=== PATIENT | female | born 2000 | race Hispanic/Latino ===

== ENCOUNTER 2024-01-21 15:08 | Emergency (ER) | payer OTHER, BC ==
[~2024-01-21] VITALS: Ht 154.9 cm; Wt 47.6 kg
[2024-01-21 15:46] LABS: HCG,QUALITATIVE URINE NEGATIVE (NEGATIVE)
[2024-01-21 15:52] LABS: AMPHET/METH SCREEN,URINE NEGATIVE (NEGATIVE); BARBITURATE SCREEN, URINE NEGATIVE (NEGATIVE); BENZODIAZEPINES SCREEN,URINE NEGATIVE (NEGATIVE); CANNABINOID SCREEN,URINE NEGATIVE (NEGATIVE); COCAINE SCREEN,URINE NEGATIVE (NEGATIVE); OPIATE SCREEN,URINE NEGATIVE (NEGATIVE); PHENCYCLIDINE SCREEN,URINE NEGATIVE (NEGATIVE)
[2024-01-21] MEDS: BACLOFEN 10 MG TABLET PO ONE (16:23)
[2024-01-21] MEDS: acetaMINOPHEN 500 MG TABLET PO ONE (16:23)
[2024-01-21] MEDS ORDERED: CYCL5TAB PO (17:38)
[2024-01-21] MEDS ORDERED: IBUP-2077 PO (17:38)
[2024-01-21] MEDS: IBUPROFEN 800 MG TAB PO SCH (17:45)
[2024-01-21 18:21] VITALS: BP 122/77; PULSE 78; RESP 20; TEMP 97.9; O2SAT 97
== END 2024-01-21 18:22 | disposition home or self-care (01) ==
LOC: EDH 15:08
DX: S13.9XXA Sprain of joints and ligaments of unspecified parts of neck, initial encounter (principal); R51.9 Headache, unspecified; V89.2XXA Person injured in unspecified motor-vehicle accident, traffic, initial encounter; Y93.I9 Activity, other involving external motion; Y92.89 Other specified places as the place of occurrence of the external cause; Y99.8 Other external cause status
CPT/HCPCS: 70450; 72125; 80305; 81025

== ENCOUNTER 2024-08-23 06:39 | Observation (INO) | payer BC ==
[~2024-08-23] VITALS: Ht 154.9 cm; Wt 49.9 kg
[2024-08-23] VITALS (22 sets, daily range): BP systolic 104–128; BP diastolic 45–77; PULSE 70–109; RESP 14–20; TEMP 97.7–98.2; O2SAT 96–98
[~2024-08-23 06:39] MED LIST: CYCL5TAB3 PO; IBUP-2077 PO
--- NOTE | 2024-08-23 06:46 | NUR ---
MD AND MOTHER AT BEDSIDE.
--- NOTE | 2024-08-23 06:49 | ERN ---
General Chief Complaint: Abdominal Pain Stated Complaint: ABD PAIN, URINARY RETENTION Time Seen by MD: 06:49 Source: patient History of Present Illness Initial Comments Patient is an otherwise healthy 24-year-old female who woke up with right lower quadrant pain this morning. She does not have urinary retention it is just hurts in the right lower quadrant when she voids. She does not have burning when she urinates. Allergies: Coded Allergies: No Known Drug Allergies (Unverified Allergy, Unknown, 01/21/24) Home Meds Active Scripts Cyclobenzaprine HCl (Cyclobenzaprine HCl) 5 Mg Tablet, 5 MG PO TIDP for 10 Days, #30 TAB Prov:ANDRA OLMOS MD 01/21/24 Ibuprofen (Ibuprofen 800 mg Tab) 800 Mg Tab, 800 MG PO TIDP PRN for PAIN for 10 Days, #30 TAB Prov:ANDRA OLMOS MD 01/21/24 Past Medical History Past Medical History: No Pertinent History Past Surgical History: Other Surgical History Other: THROAT CYST REMOVAL Female( History) LMP: Aug 17, 2024 Constitutional: (-) chills, (-) diaphoresis, (-) fever, (-) malaise, (-) weakness, (-) other documentation EENTM: (-) eye pain, (-) blurred vision, (-) tearing, (-) double vision, (-) ear pain, (-) ear discharge, (-) nose pain, (-) nose congestion, (-) throat pain, (-) Throat swelling, (-) mouth pain, (-) tooth pain, (-) mouth swelling, (-) other documentation Respiratory: (-) cough, (-) orthopnea, (-) short of breath, (-) stridor, (-) wh eezing, (-) other documentation Cardiovascular: (-) chest pain, (-) edema, (-) palpitations, (-) syncope, (-) dyspnea on exertion, (-) other documentation Gastrointestinal/Abdominal: (-) nausea, (-) vomiting, (-) diarrhea, (-) abdominal pain, (-) abdominal distention, (-) constipation, (-) rectal bleeding, (-) dark stool/melena, (-) other documentation Genitourinary: (-) vaginal discharge, (-) vaginal bleeding, (-) dysuria, (-) frequency, (-) hematuria, (-) pain, (-) other documentation Musculoskeletal: (-) Neck pain, (-) back pain, (-) Flank Pain, (-) joint pain, (-) joint swelling, (-) muscle pain, (-) muscle stiffness, (-) gout, (-) other documentation Skin: (-) laceration, (-) contusion, (-) abrasion, (-) abscess, (-) rash, (-) change in color, (-) change in hair, (-) change in nails, (-) diaphoresis, (-) dryness, (-) other documentation Neuro: (-) altered mental status, (-) headache, (-) syncope, (-) paralysis, (-) numbness, (-) seizure, (-) pre-existing deficit, (-) tremors, (-) weakness, (-) dizziness, (-) slurred speech, (-) vertigo, (-) other documentation Psych: (-) depression, (-) suicidal ideation, (-) anxiety, (-) emotional problems, (-) auditory hallucinations, (-) visual hallucinations Physical Exam General Appearance: (+) moderate distress Orientation: (+) oriented x 3 Head/Face Trauma: No Eye: bilateral eye normal inspection, bilateral eye PERRL, bilateral eye EOMI Ear, Nose, Throat: (+) hearing grossly normal, (+) normal ENT inspection, (+) moist mucous membraine Neck: (+) normal inspection, (+) supple, (+) full range of motion, (+) no JVD Respiratory: (+) chest non-tender, (+) lungs clear, (+) well ventilated Heart: (+) regular, (+) no gallop Vascular: (+) no edema Gastrointestinal: (+) soft Gastrointestinal Comment Patient has severe right lower quadrant pain and peritoneal signs. When she steps her heel to the ground her right lower quadrant hurts. She has to move very very slowly to avoid the pain. Results Laboratory and Microbiology Lab and Micro Result Laboratory Tests Test 08/23/24 07:04 08/23/24 07:20 Urine Color YELLOW (YELLOW) Urine Appearance CLEAR (CLEAR) Urine pH 5.5 (5.0-8.0) Urine Specific [place] 1.030 (1.001-1.031) Urine Protein 10 mg/dL (NEGATIVE) H Urine Glucose (UA) NEGATIVE mg/dL (NEGATIVE) Urine Ketones NEGATIVE mg/dL (NEGATIVE) Urine Occult Blood SMALL (NEGATIVE) H Urine Nitrate NEGATIVE (NEGATIVE) Urine Bilirubin NEGATIVE mg/dL (NEGATIVE) Urine Urobilinogen 0.2 mg/dL (0.2-1.0) Urine Leukocyte Esterase 75 Sandra/uL (NEGATIVE) H Urine RBC 2-5 /HPF (0-1) H Urine WBC 2-5 /HPF (0-1) H Urine Squamous Epithelial Cells FEW /HPF (0-2) Urine Bacteria None /HPF (None Seen) Urine HCG, Qualitative NEGATIVE (NEGATIVE) White Blood Count 5.8 K/uL (4.8-10.8) Red Blood Count 4.85 MIL/uL (4.00-5.50) Hemoglobin 13.3 g/dL (12.0-16.0) Hematocrit 40.9 % (36-48) Mean Corpuscular Volume 84.3 fL (79-99) Mean Corpuscular Hemoglobin 27.4 pg (27.0-33.0) Mean Corpuscular Hemoglobin Concent 32.5 g/dL (32.0-36.0) Red Cell Distribution Width 12.6 % (11.0-15.5) Platelet Count 334 K/uL (130-400) Mean Platelet Volume 9.7 fL (7.5-10.5) Immature Granulocyte % (Auto) 0.3 % (0-1) Neutrophils (%) (Auto) 43.0 % (40.0-77.0) Lymphocytes (%) (Auto) 46.0 % (21.0-51.0) Monocytes (%) (Auto) 7.7 % (3.0-13.0) Eosinophils (%) (Auto) 2.7 % (0.0-8.0) Basophils (%) (Auto) 0.3 % (0.0-5.0) Neutrophils # (Auto) 2.5 K/uL (1.8-7.7) Lymphocytes # (Auto) 2.7 K/uL (1.0-4.8) Monocytes # (Auto) 0.5 K/uL (0.1-1.0) Eosinophils # (Auto) 0.16 K/uL (0.00-0.70) Basophils # (Auto) 0.02 K/uL (0.00-0.20) Absolute Immature Granulocyte (auto 0.02 K/uL (0-1) Nucleated Red Blood Cells 0.0 % (0.0-0.19) Sodium Level 138 mmol/L (136-145) Potassium Level 3.6 mmol/L (3.5-5.1) Chloride Level 104 mmol/L (101-111) Carbon Dioxide Level 27 mmol/L (21-32) Blood Urea Nitrogen 11 mg/dL (7-18) Creatinine 0.8 mg/dL (0.5-1.0) Glomerular Filtration Rate Calc 107 mL/min (>90) Random Glucose 92 mg/dL (70-105) Total Calcium 9.0 mg/dL (8.5-10.1) Total Bilirubin 0.3 mg/dL (0.2-1.0) Aspartate Amino Transf (AST/SGOT) 14 U/L (10-37) Alanine Aminotransferase (ALT/SGPT) 10 U/L (12-78) L Alkaline Phosphatase 56 U/L (50-136) Total Protein 7.5 g/dL (6.0-8.3) Albumin 3.8 g/dL (3.5-5.0) Amylase Level 45 U/L (25-115) Lipase 32 U/L (16-77) Labs Reviewed?: Yes EKG/XRAY/US/CT/MRI CT Scan Comment [place] [id number] [address] IMAGING REPORT Signed PATIENT: EFRAIN CROFT MR#: [id number] : 2000 SEX: F AGE: 24 LOCATION: [facility] ORDER 5 STATUS: REG ER REPORT#: [id number] SERVICE 3 REASON: RLQ pain ORDERING PHYSICIAN: SHANTE NORMAN MD PROCEDURE: ABD PEL W - CT ABDOMEN/PELVIS W/CONTRAST Exam Type: CT ABDOMEN/PELVIS W/CONTRAST Clinical Information: RLQ pain Comparison: None Contrast: 100 cc's Isovue 370 IV, no complications or adverse reactions CT Dose Index (CTDI): 31.60 mGy Dose Length Product (DLP): 1740.80 total mGy-cm Findings: No evidence of nephro or ureterolithiasis is found. No hydronephrosis or ureteral dilatation is seen. The lung bases are clear. The stomach is unremarkable. It shows no wall thickening. No gross ulceration is seen. It is not overly distended. There are no surrounding inflammatory changes. No wall lesions are identified to suggest cancer. The spleen is unremarkable. It is not enlarged. The pancreas shows normal anatomy. It is not fatty replaced. It shows no lesions. The pancreatic duct is not dilated. The gallbladder is unremarkable. It shows no cholelithiasis. The gallbladder wall is normal in thickness. There is no pericholecystic fluid. The is no acute or chronic inflammation noted. The adrenal glands are unremarkable. There is no enlargement. No lesions are noted. The liver is unremarkable. It shows no focal masses. There is no evidence of appendiceal inflammation or dilatation. Appendix diameter is less than 5 mm. However, there is an intraluminal appendiceal appendicolith. This is of uncertain clinical significance. The small bowel is unremarkable. There is no evidence of dilatation to suggest obstruction. No evidence of adynamic ileus is seen. There is no small bowel wall thickening to suggest enteritis. The colon is unremarkable. The urinary bladder is unremarkable. There is no wall thickening to suggest tumor or inflammation. There are no intraluminal calculi. There are no diverticula. There is no evidence of chronic bladder outlet obstruction. There is no evidence of urinary bladder distention to suggest urinary retention. The other pelvic structures are unremarkable. The bony and vascular structures are unremarkable for the patient's age. IMPRESSION: There is no evidence of appendiceal inflammation or dilatation. Appendix diameter is less than 5 mm. However, there is an intraluminal appendiceal appendicolith. This is of uncertain clinical significance. This study was performed using dose reduction techniques to include automated exposure control and/or adjustment of the mA and/or kV according to patient size. DICTATED BY: OZZIE ARCOS MD DATE: 08/23/24829 ELECTRONICALLY SIGNED BY: OZZIE ARCOS MD DATE: 08/23/24833 MDM The patient's exam and right lower quadrant pain are consistent with a appendicitis; however, we can not rule out ovarian disease or STD or urinary tract infection or other intra-abdominal pathologies. We will obtain a CBC chemistry panel give her fluid pain medications and get a CT scan with IV contrast. Also UA and urine . MDM: Differential diagnosis: Appendicitis, right lower quadrant pain, abdominal pain, intractable abdominal pain, Rationale: Tests considered and ordered secondary to shared decision making include: labs, ECG and radiology Previous outside records reviewed: Old ER visits. Risk of complication and/or morbidity or mortality of patient management: None Medications-Per medication reconciliation Need for hospitalization: Patient does meet criteria for hospitalization. Need for emergency major/minor surgery: No There are no social concerns with this patient. Prescription drug management Prescriptions will include symptomatic care Patient's prior external medical records from other ER visits were reviewed by me as indicated. Prior testing and results from previous visits were reviewed. Prior tests were taken into account with medical decision making and resource u tilization, independent historian/historians were used to obtain complete medical history. I independently interpreted the test that were performed, results were reviewed by me and considered findings on radiology if ordered. Medical management and examination interpretation discussions were had by me with other qualified healthcare professionals as indicated for the patient's ca re. Patient presents with right lower quadrant tenderness on palpation on physical exam. Patient will be admitted under the hospitalist group due to the physical presentation of a possible appendicitis he has been dull CT did not confirm inflammation of the poole it was appendicoliths which is still concerning for evolving appendicitis. Surgeon will be consulted for ongoing evaluation and management. ED Course Orders Procedure Category Date Status Time Urinalysis Profile LAB 08/23/24 Complete 06:55 Cbc With Differential LAB 08/23/24 Complete 06:56 Comprehensive LAB 08/23/24 Complete Metabolic Panel 06:56 Amylase LAB 08/23/24 Complete 06:56 Lipase LAB 08/23/24 Complete 06:56 ,Urine Test LAB 08/23/24 Complete 07:02 Ct Abdomen/Pelvis CT 08/23/24 Resulted W/Contrast 07:04 Ketorolac PHA 08/23/24 Complete Tromethamine 30mg/Ml 07:30 Culture Urine TESSA 08/23/24 In Process 07:17 Iohexol (Omnipaque) PHA 08/23/24 Complete 07:49 Current Medications Medications (Trade) Dose Ordered Sig/Samira Route PRN Reason Start Time Stop Time Status Last Admin Dose Admin Iohexol (Omnipaque) 75 ml STK-MED ONCE IV 08/23/24 07:49 08/23/24 07:50 DC Ketorolac Tromethamine (toRADol) 30 mg ONCE ONCE IVP 08/23/24 07:30 08/23/24 07:31 DC 08/23/24 07:25 Vital Signs Date Time Temp Pulse Resp B/P (MAP) Pulse Ox O2 Delivery O2 Flow Rate FiO2 08/23/24 08:16 65 17 111/78 96 Room Air* 0 21 08/23/24 06:40 98.8 77 16 133/93 100 Room Air DX & DISP Disposition: Inpatient Decision to Admit Time: 09:17 Departure Impression: Primary Impression: Appendicitis Additional Impressions: Appendicolith, Right lower quadrant pain Condition: Stable Referrals: ALISON POWERS (PCP) SHANTE NORMAN MD Aug 23, 2024 06:49 KASSANDRA HOWELL MD Aug 23, 2024 09:18
--- NOTE | 2024-08-23 07:03 | NUR ---
PATIENT IN RESTROOM COLLECTING A URINE SAMPLE.
[2024-08-23 07:14] LABS: APPEARANCE,URINE CLEAR (CLEAR); BILIRUBIN,URINE NEGATIVE (NEGATIVE); COLOR,URINE YELLOW (YELLOW); GLUCOSE, URINE (UA) NEGATIVE (NEGATIVE); KETONES,URINE NEGATIVE (NEGATIVE); LEUKOCYTE ESTERASE ,URINE 75 Leu/uL (NEGATIVE); NITRATE,URINE NEGATIVE (NEGATIVE); OCCULT BLOOD,URINE SMALL (NEGATIVE); PH,URINE 5.5 (5.0-8.0); PROTEIN,URINE 10 mg/dL (NEGATIVE); UROBILINOGEN,URINE 0.2 mg/dL (0.2-1.0)
[2024-08-23 07:17] LABS: ADD UA MICROSCOPIC YES
[2024-08-23 07:19] LABS: MUCUS,URINE MOD LPF (None Seen); SQUAMOUS EPITHELIAL CELL,UR FEW /HPF (0-2)
--- NOTE | 2024-08-23 07:21 | NUR ---
PENDING GFR & TEST RESULTS, IV SITE, & CONSENT FOR CT EXAM.
[2024-08-23] MEDS: ketOROlac 30MG VIAL (30MG/ML) IVP ONE (07:25)
[2024-08-23 07:29] LABS: BASOPHILS # (AUTO) 0.02 K/uL (0.00-0.20); BASOPHILS % (AUTO) 0.3 % (0.0-5.0); EOSINOPHILS # (AUTO) 0.16 K/uL (0.00-0.70); EOSINOPHILS % (AUTO) 2.7 % (0.0-8.0); HEMATOCRIT 40.9 % (36-48); IMMATURE GRANULOCYTE ABSOLUTE 0.02 K/uL (0-1); LYMPHOCYTES # (AUTO) 2.7 K/uL (1.0-4.8); MEAN CORPUSCULAR HEMOGLOBIN 27.4 pg (27.0-33.0); MEAN CORPUSCULAR HGB CONC 32.5 g/dL (32.0-36.0); MEAN CORPUSCULAR VOLUME 84.3 fL (79-99); MONOCYTES # (AUTO) 0.5 K/uL (0.1-1.0); MONOCYTES % (AUTO) 7.7 % (3.0-13.0); NEUTROPHILS # (AUTO) 2.5 K/uL (1.8-7.7); PLATELET COUNT (AUTO) 334 K/uL (130-400); RED BLOOD CELL COUNT(AUTO) 4.85 MIL/uL (4.00-5.50); RED CELL DISTRIBUTION WIDTH 12.6 % (11.0-15.5); WHITE BLOOD COUNT (AUTO) 5.8 K/uL (4.8-10.8)
[2024-08-23 07:37] LABS: CREATININE 0.8 mg/dL (0.5-1.0); POTASSIUM 3.6 mmol/L (3.5-5.1)
[2024-08-23 07:41] LABS: ALBUMIN 3.8 g/dL (3.5-5.0); BILIRUBIN,TOTAL 0.3 mg/dL (0.2-1.0); TOTAL PROTEIN, SERUM 7.5 g/dL (6.0-8.3)
[2024-08-23] MEDS ORDERED: IOHEXOL-350 75 ML VIAL IV ONE (07:49)
--- NOTE | 2024-08-23 08:34 | HMCIMG ---
Exam Type: CT ABDOMEN/PELVIS W/CONTRAST Clinical Information: RLQ pain Comparison: None Contrast: 100 cc's Isovue 370 IV, no complications or adverse reactions CT Dose Index (CTDI): 31.60 mGy Dose Length Product (DLP): 1740.80 total mGy-cm Findings: No evidence of nephro or ureterolithiasis is found. No hydronephrosis or ureteral dilatation is seen. The lung bases are clear. The stomach is unremarkable. It shows no wall thickening. No gross ulceration is seen. It is not overly distended. There are no surrounding inflammatory changes. No wall lesions are identified to suggest cancer. The spleen is unremarkable. It is not enlarged. The pancreas shows normal anatomy. It is not fatty replaced. It shows no lesions. The pancreatic duct is not dilated. The gallbladder is unremarkable. It shows no cholelithiasis. The gallbladder wall is normal in thickness. There is no pericholecystic fluid. The is no acute or chronic inflammation noted. The adrenal glands are unremarkable. There is no enlargement. No lesions are noted. The liver is unremarkable. It shows no focal masses. There is no evidence of appendiceal inflammation or dilatation. Appendix diameter is less than 5 mm. However, there is an intraluminal appendiceal appendicolith. This is of uncertain clinical significance. The small bowel is unremarkable. There is no evidence of dilatation to suggest obstruction. No evidence of adynamic ileus is seen. There is no small bowel wall thickening to suggest enteritis. The colon is unremarkable. The urinary bladder is unremarkable. There is no wall thickening to suggest tumor or inflammation. There are no intraluminal calculi. There are no diverticula. There is no evidence of chronic bladder outlet obstruction. There is no evidence of urinary bladder distention to suggest urinary retention. The other pelvic structures are unremarkable. The bony and vascular structures are unremarkable for the patient's age. IMPRESSION: There is no evidence of appendiceal inflammation or dilatation. Appendix diameter is less than 5 mm. However, there is an intraluminal appendiceal appendicolith. This is of uncertain clinical significance. This study was performed using dose reduction techniques to include automated exposure control and/or adjustment of the mA and/or kV according to patient size.
--- NOTE | 2024-08-23 09:42 | HP ---
[facility] Date of Service: Aug 23, 2024 Time of Service: 09:39 HISTORY OF PRESENT ILLNESS: [ ] Admission date 08/23/2024 PCP Sonido Holley Chief complaint right lower quadrant pain This is a 24-year-old female presents in ED with chief complaints of right lower quadrant pain. Onset this morning. Severity severe aggravated factors movement alleviating factors none state 10/10 on pain scale. Denies nausea and vomiting and diarrhea no fever no chills reported. During physical examined patient has positive Rovsing sign CT abdomen pelvis suspecting appendicitis. Imaging: intraluminal appendiceal appendicolith. We will consult general surgeon. Patient was seen in for 403 right upper quad dull pain. No nausea no vomiting. REVIEW OF SYSTEMS A14 point ROS was obtained all relevant positive documented otherwise ROS negative PAST MEDICAL HISTORY: [ ] Negative PAST SURGICAL HISTORY: [ ] nodule removal from thyroid PAST SOCIAL HISTORY: [ ] Denies smoking tobacco products and alcohol use and Illicit drug use FAMILY HISTORY: [ ] Noncontributory Coded Allergies: No Known Drug Allergies (Unverified Allergy, Unknown, 01/21/24) PHYSICAL EXAM GENERAL APPEARANCE: The patient is awake, alert, and oriented, in no acute cardiopulmonary distress. NEUROLOGICAL: Cranial nerves II-XII grossly intact. Motor is 5/5 in bilateral upper and lower extremities proximal to distal. No sensory deficits. HEENT: Face is symmetric. Pupils are equal and reactive. Extraocular movements are intact. NECK: Supple. No JVD. No thyromegaly. No submental, submandibular, pre- /postauricular, occipital or supraclavicular lymphadenopathy. CHEST: Normal chest expansion. No Telemetry. LUNGS: Absence of any rales, rhonchi or any wheezing. CARDIOVASCULAR: Regular. S1 and S2 normal. No appreciable rubs, murmurs or gallops. ABDOMEN: Soft, nontender, and nondistended. positive Rovsing sign positive heel tap sign : Deferred. No Galo. EXTREMITIES: Non-edematous and not cyanotic. No clubbing. Good capillary refill. SKIN: No skin breakdown. Vital Sign (Last 24 Hours) 08/23/24 08/23/24 06:40 08:16 Temp 98.8 Pulse 65 Resp 17 B/P (MAP) 111/78 Pulse Ox 96 O2 Delivery Room Air* O2 Flow Rate 0 FiO2 21 LABS: Laboratory: Test 08/23/24 07:20 08/23/24 07:04 Range/Units White Blood Count 5.8 4.8-10.8 K/uL Red Blood Count 4.85 4.00-5.50 MIL/uL Hemoglobin 13.3 12.0-16.0 g/dL Hematocrit 40.9 36-48 % Mean Corpuscular Volume 84.3 79-99 fL Mean Corpuscular Hemoglobin 27.4 27.0-33.0 pg Mean Corpuscular Hemoglobin Concent 32.5 32.0-36.0 g/dL Red Cell Distribution Width 12.6 11.0-15.5 % Platelet Count 334 130-400 K/uL Mean Platelet Volume 9.7 7.5-10.5 fL Immature Granulocyte % (Auto) 0.3 0-1 % Neutrophils (%) (Auto) 43.0 40.0-77.0 % Lymphocytes (%) (Auto) 46.0 21.0-51.0 % Monocytes (%) (Auto) 7.7 3.0-13.0 % Eosinophils (%) (Auto) 2.7 0.0-8.0 % Basophils (%) (Auto) 0.3 0.0-5.0 % Neutrophils # (Auto) 2.5 1.8-7.7 K/uL Lymphocytes # (Auto) 2.7 1.0-4.8 K/uL Monocytes # (Auto) 0.5 0.1-1.0 K/uL Eosinophils # (Auto) 0.16 0.00-0.70 K/uL Basophils # (Auto) 0.02 0.00-0.20 K/uL Absolute Immature Granulocyte (auto 0.02 0-1 K/uL Nucleated Red Blood Cells 0.0 0.0-0.19 % Sodium Level 138 136-145 mmol/L Potassium Level 3.6 3.5-5.1 mmol/L Chloride Level 104 101-111 mmol/L Carbon Dioxide Level 27 21-32 mmol/L Blood Urea Nitrogen 11 7-18 mg/dL Creatinine 0.8 0.5-1.0 mg/dL Glomerular Filtration Rate Calc 107 >90 mL/min Random Glucose 92 70-105 mg/dL Total Calcium 9.0 8.5-10.1 mg/dL Total Bilirubin 0.3 0.2-1.0 mg/dL Aspartate Amino Transf (AST/SGOT) 14 10-37 U/L Alanine Aminotransferase (ALT/SGPT) 10 L 12-78 U/L Alkaline Phosphatase 56 50-136 U/L Total Protein 7.5 6.0-8.3 g/dL Albumin 3.8 3.5-5.0 g/dL Amylase Level 45 25-115 U/L Lipase 32 16-77 U/L Urine Color YELLOW YELLOW Urine Appearance CLEAR CLEAR Urine pH 5.5 5.0-8.0 Urine Specific Max 1.030 1.001-1.031 Urine Protein 10 H NEGATIVE mg/dL Urine Glucose (UA) NEGATIVE NEGATIVE mg/dL Urine Ketones NEGATIVE NEGATIVE mg/dL Urine Occult Blood SMALL H NEGATIVE Urine Nitrate NEGATIVE NEGATIVE Urine Bilirubin NEGATIVE NEGATIVE mg/dL Urine Urobilinogen 0.2 0.2-1.0 mg/dL Urine Leukocyte Esterase 75 H NEGATIVE Sandra/uL Urine RBC 2-5 H 0-1 /HPF Urine WBC 2-5 H 0-1 /HPF Urine Squamous Epithelial Cells FEW 0-2 /HPF Urine Bacteria None None Seen /HPF Urine HCG, Qualitative NEGATIVE NEGATIVE DIAGNOSTICS / RADIOLOGY: [ ] REASON: RLQ pain ORDERING PHYSICIAN: SHANTE NORMAN MD PROCEDURE: ABD PEL W - CT ABDOMEN/PELVIS W/CONTRAST Exam Type: CT ABDOMEN/PELVIS W/CONTRAST Clinical Information: RLQ pain Comparison: None Contrast: 100 cc's Isovue 370 IV, no complications or adverse reactions CT Dose Index (CTDI): 31.60 mGy Dose Length Product (DLP): 1740.80 total mGy-cm Findings: No evidence of nephro or ureterolithiasis is found. No hydronephrosis or ureteral dilatation is seen. The lung bases are clear. The stomach is unremarkable. It shows no wall thickening. No gross ulceration is seen. It is not overly distended. There are no surrounding inflammatory changes. No wall lesions are identified to suggest cancer. The spleen is unremarkable. It is not enlarged. The pancreas shows normal anatomy. It is not fatty replaced. It shows no lesions. The pancreatic duct is not dilated. The gallbladder is unremarkable. It shows no cholelithiasis. The gallbladder wall is normal in thickness. There is no pericholecystic fluid. The is no acute or chronic inflammation noted. The adrenal glands are unremarkable. There is no enlargement. No lesions are noted. The liver is unremarkable. It shows no focal masses. There is no evidence of appendiceal inflammation or dilatation. Appendix diameter is less than 5 mm. However, there is an intraluminal appendiceal appendicolith. This is of uncertain clinical significance. The small bowel is unremarkable. There is no evidence of dilatation to suggest obstruction. No evidence of adynamic ileus is seen. There is no small bowel wall thickening to suggest enteritis. The colon is unremarkable. The urinary bladder is unremarkable. There is no wall thickening to suggest tumor or inflammation. There are no intraluminal calculi. There are no diverticula. There is no evidence of chronic bladder outlet obstruction. There is no evidence of urinary bladder distention to suggest urinary retention. The other pelvic structures are unremarkable. The bony and vascular structures are unremarkable for the patient's age. IMPRESSION: There is no evidence of appendiceal inflammation or dilatation. Appendix diameter is less than 5 mm. However, there is an intraluminal appendiceal appendicolith. This is of uncertain clinical significance. This study was performed using dose reduction techniques to include automated exposure control and/or adjustment of the mA and/or kV according to patient size. DICTATED BY: OZZIE ARCOS MD ASSESSMENT: Suspecting appendicitis positive Rovsing sign positive heel tap sign POA Intractable right lower quad pain POA UTI POA PLAN: [ ] Admit: Medical-surgical floor condition: Guarded Status: Full code IVF: NS at 75 mL/hour Consultants general surgeon Antibiotics: Rocephin1 g every 24 hours Labs cbc, cmp, mag+ Replace electrolytes as needed as per protocol to keep potassium above 4.0 magnesium 2.0. Home medications pending to be reviewed by RN nurse. PRN: MEDICATIONS Tylenol 650 mg po every 4 hrs for fever zofran 4 mg IV every 6 hrs for n/v bowel regiment: lactulose 20 gm PO BID PRN constipation Pain management: Toradol 50 mg IV every six hours Supportive measures: DVT ppx, GI ppx all questions answered time spent: > 35 min Supervising MD: Dr. greenwood c/tammie This document was generated in part using voice recognition software, occasional wrong word or sound alike substitutions may have occurred due to the inherent limitations of voice recognition software. Read the chart carefully and recognize using context, where the substitutions have occurred. Although every effort was made to edit the content, property worker and typing errors may occur ATTESTATION BY PHYSICIAN I have seen and examined the patient. I reviewed the documentation, medical decision making, and treatment plan as noted by the mid-level provider above. I agree with the findings and plan of care. HI GREENWOOD MD, ELIZABETH NP Aug 23, 2024 09:42
[2024-08-23] MEDS ORDERED: ondanSETRON 4MG INJ IVP PRN (10:30)
[2024-08-23] MEDS ORDERED: LACTULOSE 20 GM/30 ML UDCUP PO PRN (10:30)
[2024-08-23] MEDS ORDERED: PoTASSium chloRIDE 20MEQ/100ML 100 ML IV PRN (10:30)
[2024-08-23] MEDS ORDERED: acetaMINOPHEN 325 MG TAB PO PRN (10:30)
[2024-08-23] MEDS: ketOROlac 15MG/ML VIAL (15MG/ML) IV PRN (12:19)
[2024-08-23] MEDS: cefTRIAXone 1G VIAL IVPB SCH (12:20)
[2024-08-23] MEDS: 0.9%NACL 1000ML 1,000 ML IV SCH (12:20)
--- NOTE | 2024-08-23 13:22 | CONS ---
CONSULT NOTE: Consulting physician: Dr. Lo Consulting service: General surgery Reason for consultation: Appendicitis History of present illness: This is a 24-year-old female with no significant medical history has been consulted to surgery after presenting to the hospital with significant lower quadrant discomfort that began earlier in the morning. Patient reports no significant medical history or surgical history or previous events similar. WBCs unremarkable. Imaging concerning with the appendicolith within the appendix at this time. Patient currently NPO Medical history: None Surgical history: None Review of systems: General: No Fever, No Chills, No Night Sweats, No Fatigue, No Malaise, No Appetite, No Other HEENT: No Head Aches, No Visual Changes, No Eye Pain, No Ear Pain, No Dysphasia, No Sinus Congestion, No Post Nasal Drip, No Sore Throat, No Other Pulmonary: No Dyspnea, No Cough, No Pleuritic Chest Pain, No Other Cardiovascular: No: Chest Pain, Palpitations, Orthopnea, Paroxysmal No Dyspnea, Edema, Lt Headedness, Other Gastrointestinal: No: Nausea, Vomiting, Diarrhea, Constipation, Melena, Hematochezia, Other Genitourinary: No Dysuria, No Frequency, No Incontinence, No Hematuria, No Retention, No Other Musculoskeletal: No: other, neck pain, shoulder pain, arm pain, back pain, hand pain, leg pain, foot pain Skin: No Urticaria, No Rash, No Other Neurological: No: Weakness, Numbness, Incoordination, Change in speech, Confusion, Seizures, Other Physical exam: General: Awake alert and oriented Heart: Regular rate and rhythm} Lungs: [Clear to auscultation no distress Abdomen: Right lower quadrant tenderness greater two five no rebound Assessment: This is a 24-year-old female with concerns of appendicolith in the appendix Plan: At this point in time patient will be scheduled for appendectomy today with Dr. Solis Patient to remain NPO Patient informed of surgical procedure risks and benefits and agrees with surgical intervention Consent for surgical intervention to be obtained Doctor Solis has been updated in patient's status and surgical team to follow patient closely BRAYDEN AMBRIZ Jr. Aug 23, 2024 13:22
[2024-08-23] MEDS ORDERED: proPOFol 10 MG/ML 20ML VIAL IV ONE (16:23)
[2024-08-23] MEDS ORDERED: SUCCINYLCHOLINE CHLORIDE 20 MG/ML 10 ML VIAL ONE (16:23)
[2024-08-23] MEDS ORDERED: MIDAZOLAM HCL 1 MG/ML 2ML VIAL ONE (16:23)
[2024-08-23] MEDS ORDERED: LIDOCAINE PF 100MG/5ML (2%) SYRINGE 5ML ONE (16:23)
[2024-08-23] MEDS ORDERED: ondanSETRON 4MG INJ ONE (16:24)
[2024-08-23] MEDS ORDERED: dexaMETHasone SOD PHOSPHATE 10MG/ML 1ML VIAL ONE (16:24)
[2024-08-23] MEDS ORDERED: FENTanyl CITRate PF 50 MCG/1 ML 2ML VIAL ONE (16:26)
[2024-08-23] MEDS ORDERED: rocuRONium bROMide 10MG/1ML 5ML VL ONE (16:54)
[2024-08-23] MEDS: LIDOCAINE HCL 1% 20 ML VIAL ONE (17:19)
[2024-08-23] MEDS: BUPIvacaine/PF 0.25% 30ML VIAL IJ ONE (17:19)
--- NOTE | 2024-08-23 17:51 | OP ---
Operative Note: DATE OF PROCEDURE: 08/23/24 SURGEON: ROLY HEAD DO TUBE FORMER OPERATOR: None ANESTHESIA: General and local ANESTHESIOLOGIST/FAMILY PRESERVATION OFFICER: COURTNEY Tello PREOPERATIVE DIAGNOSIS: Acute appendicitis POSTOPERATIVE DIAGNOSIS: Acute uncomplicated appendicitis SYNOPSIS: None PROCEDURE: Laparoscopic appendectomy ESTIMATED BLOOD LOSS: 5 cc INDICATIONS: This is a 24-year-old female that came to the emergency department for abrupt onset lower abdominal pain that started this morning. She is afebrile without leukocytosis. CT scan showed a normal appendix with a fecalith. On physical exam patient was tender to palpation in the right lower quadrant. Patient reports that she had had several similar episodes in the past that resolved spontaneously. I discussed with the patient that the most likely diagnosis is acute appendicitis, but I can not be certain that there is an alternative cause to this abdominal pain. I recommended laparoscopic appendectomy. I discussed the procedure in detail with the patient and her family was all at bedside. All questions were answered. The patient expressed understanding and agreement with plan. DESCRIPTION OF PROCEDURE: Patient was placed on the operating table in the supine position with the left arm tucked. After being sedated and intubated by anesthesia the abdomen was prepped and draped in the usual sterile fashion. Patient is on antibiotics from the floor next dose not due for 3 hours. Local anesthetic was infiltrated into the proposed site of the supraumbilical incision. A transverse supraumbilical skin incision was made and dissection was carried down to the level of fascia. The fascia was grasped with 2 Christina clamps and elevated. The fascia was incised and the peritoneum was entered bluntly. A 12 mm balloon port was inserted into the peritoneal cavity and the abdomen was insufflated. The patient tolerated insufflation well. A laparoscopic camera was inserted into the abdomen and all 4 quadrants were inspected. no evidence of inadvertent injury apparent. There was a moderate amount of serosanguineous fluid in the pelvis. Two 5 mm ports were then placed in the suprapubic region and left lower quadrant under direct visualization. The patient was placed in Trendelenburg position with right side up. The appendix was identified and found to be enlarged without significant induration. The mesoappendix was divided using the Vuoyant vessel sealing device. The base of the appendix was transected using a white load laparoscopic stapling device. The staple line was inspected and found to be hemostatic. The appendix was placed into a laparoscopic bag. The ovaries were evaluated and found to be mildly enlarged. Serosanguineous fluid was suctioned from the pelvis. The 5 mm ports were removed under direct visualization and no ongoing bleeding evident. The appendix was removed with the 12 mm port and handed off for routine pathology. The fascia of the 12 mm port site was approximated using 0 Vicryl in a single [id number] suture. The skin was approximated using skin elif. Wounds were dressed with gauze and tape. All instrument, needle, and sponge counts were correct at the end of the procedure. The patient tolerated the procedure well. The patient was aroused from sedation extubated and taken to the postanesthesia care unit in good condition. ROLY HEAD DO Aug 23, 2024 17:51
[2024-08-23] MEDS: ondanSETRON 4MG INJ ONE (18:05)
[2024-08-23] MEDS: metoCLOPRAmide 10 MG/2 ML VIAL ONE (18:24)
--- NOTE | 2024-08-23 20:00 | NUR ---
NURSE NOTE POC DISCUSSED WITH PATIENT, ENCOURAGED TO AMBULATE TOLERATED, PATIENT ABLE TO AMBULATE TO RESTROOM WITH NO ISSUES, BURPING NOTED, VOIDED WELL, DENIES DIZZINESS. SCDS IN PLACE, TOLERATING CLEAR LIQUID , DRINKING WATER, REFUSED JELLO OR APPLE JUICE. CALL CASE AT REACH, EDUCATED ON FALL PRECAUTIONS. PATIENT VOICED UNDERSTANDING.
[2024-08-24 00:50] VITALS: BP 106/52; PULSE 80; RESP 19; TEMP 98
[2024-08-24 04:00] VITALS: BP 108/59; PULSE 74; RESP 18; TEMP 97.8
[2024-08-24 04:35] LABS: BASOPHILS # (AUTO) 0.01 K/uL (0.00-0.20); BASOPHILS % (AUTO) 0.1 % (0.0-5.0); HEMATOCRIT 37.4 % (36-48); IMMATURE GRANULOCYTE ABSOLUTE 0.03 K/uL (0-1); LYMPHOCYTES # (AUTO) 0.6 K/uL (1.0-4.8); LYMPHOCYTES % (AUTO) 7.5 % (21.0-51.0); MEAN CORPUSCULAR HEMOGLOBIN 26.9 pg (27.0-33.0); MEAN CORPUSCULAR HGB CONC 32.1 g/dL (32.0-36.0); MEAN CORPUSCULAR VOLUME 83.9 fL (79-99); MONOCYTES # (AUTO) 0.1 K/uL (0.1-1.0); MONOCYTES % (AUTO) 0.8 % (3.0-13.0); NEUTROPHILS # (AUTO) 7.8 K/uL (1.8-7.7); NEUTROPHILS % (AUTO) 91.2 % (40.0-77.0); PLATELET COUNT (AUTO) 320 K/uL (130-400); RED BLOOD CELL COUNT(AUTO) 4.46 MIL/uL (4.00-5.50); RED CELL DISTRIBUTION WIDTH 12.2 % (11.0-15.5); WHITE BLOOD COUNT (AUTO) 8.5 K/uL (4.8-10.8)
[2024-08-24 04:44] LABS: ALBUMIN 3.3 g/dL (3.5-5.0); BILIRUBIN,TOTAL 0.5 mg/dL (0.2-1.0); CREATININE 0.7 mg/dL (0.5-1.0); MAGNESIUM 1.6 mg/dL (1.80-2.40); POTASSIUM 4.2 mmol/L (3.5-5.1); TOTAL PROTEIN, SERUM 6.9 g/dL (6.0-8.3)
[2024-08-24] MEDS: MAGNESIUM 2GM PREMIX 50ML 50 ML IV PRN (05:25)
[2024-08-24 07:20] VITALS: BP 98/51; PULSE 85; RESP 20; TEMP 98.2
[2024-08-24 08:00] VITALS: O2SAT 98
--- NOTE | 2024-08-24 08:28 | NUR ---
PATIENT COMPLAINS OF TIGHTNESS ON LEFT UPPER ARM AND TINGLING TO THE LOWER EXTREMITIES. BP TAKEN AND IS WITHIN NORMAL RANGE. PATIENT'S MAGNESIUM WAS AT 1.6 THIS MORNING AND HAS BEEN COVERED. WILL LET THE ROUNDING KNOW.
--- NOTE | 2024-08-24 09:46 | NUR ---
PATIENT GIVEN TORADOL FOR PAIN THIS MORNING. WENT TO REASSESS PATIENT AND PATIENT STILL COMPLAINING OF PAIN. CONTACTED DR. GARCIA AND HAVE NOT RECEIVED A REPSONSE. WILL WAIT FOR RECOMMENDATION. ENCOURAGED PATIENT TO AMBULATE. PATIENT VERBALIZED UNDERSTANDING
--- NOTE | 2024-08-24 11:32 | NUR ---
DCP -- Home Patient states lives with Rocio Francis, Mother [phone] and father in a house with a ramp entrance and walk in shower. 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 States able to complete ADL's on her own. Denies medical devices. Denies home health services, home care provider or dialysis. PCP - Kishan Head MD Pharmacy - [address] Upon discharge, state Rocio Francis, Mother [phone] and assist with care, as needed. At this time, patient does not foresee additional medical needs. MD VALLADARES -- Status post Laparoscopic appendectomy with Dr. Corral Addendum: 08/24/24 at 1141 by CHEO HAMMER RN CM Amended: Links added.
[2024-08-24 11:42] VITALS: BP 112/75; PULSE 87; RESP 20; TEMP 98.4
--- NOTE | 2024-08-24 14:56 | DS ---
Discharge Summary Hospital Course Summary: 24-year-old female with no significant past medical history presented to ED with complaints of sudden onset of right lower quadrant pain , 10/10 intensity, aggravated with movement and no relieving factors. CT abdomen showed intraluminal appendiceal appendicolith. Laboratory studies were unremarkable. General surgery was consulted for acute appendicitis and laparoscopic appendectomy was done on 08/23/2024. Patient tolerated the procedure well and the postoperative hospital course was uneventful. Steel Construction Worker(s): ROLY HEAD DO- General Surgery Procedure(s): PROCEDURE: ABD PEL W - CT ABDOMEN/PELVIS W/CONTRAST Exam Type: CT ABDOMEN/PELVIS W/CONTRAST Clinical Information: RLQ pain Comparison: None Contrast: 100 cc's Isovue 370 IV, no complications or adverse reactions CT Dose Index (CTDI): 31.60 mGy Dose Length Product (DLP): 1740.80 total mGy-cm Findings: No evidence of nephro or ureterolithiasis is found. No hydronephrosis or ureteral dilatation is seen. The lung bases are clear. The stomach is unremarkable. It shows no wall thickening. No gross ulceration is seen. It is not overly distended. There are no surrounding inflammatory changes. No wall lesions are identified to suggest cancer. The spleen is unremarkable. It is not enlarged. The pancreas shows normal anatomy. It is not fatty replaced. It shows no lesions. The pancreatic duct is not dilated. The gallbladder is unremarkable. It shows no cholelithiasis. The gallbladder wall is normal in thickness. There is no pericholecystic fluid. The is no acute or chronic inflammation noted. The adrenal glands are unremarkable. There is no enlargement. No lesions are noted. The liver is unremarkable. It shows no focal masses. There is no evidence of appendiceal inflammation or dilatation. Appendix diameter is less than 5 mm. However, there is an intraluminal appendiceal appendicolith. This is of uncertain clinical significance. The small bowel is unremarkable. There is no evidence of dilatation to suggest obstruction. No evidence of adynamic ileus is seen. There is no small bowel wall thickening to suggest enteritis. The colon is unremarkable. The urinary bladder is unremarkable. There is no wall thickening to suggest tumor or inflammation. There are no intraluminal calculi. There are no diverticula. There is no evidence of chronic bladder outlet obstruction. There is no evidence of urinary bladder distention to suggest urinary retention. The other pelvic structures are unremarkable. The bony and vascular structures are unremarkable for the patient's age. IMPRESSION: There is no evidence of appendiceal inflammation or dilatation. Appendix diameter is less than 5 mm. However, there is an intraluminal appendiceal appendicolith. This is of uncertain clinical significance. This study was performed using dose reduction techniques to include automated exposure control and/or adjustment of the mA and/or kV according to patient size. DICTATED BY: OZZIE ARCOS MD DATE: 08/23/24829 ELECTRONICALLY SIGNED BY: OZZIE ARCOS MD DATE: 08/23/2434 Operative Note: DATE OF PROCEDURE: 08/23/24 SURGEON: ROLY HEAD DO DISPLAY MANAGER: None ANESTHESIA: General and local ANESTHESIOLOGIST/INTERVENTIONAL PAIN PHYSICIAN: COURTNEY Tello PREOPERATIVE DIAGNOSIS: Acute appendicitis POSTOPERATIVE DIAGNOSIS: Acute uncomplicated appendicitis SYNOPSIS: None PROCEDURE: Laparoscopic appendectomy ESTIMATED BLOOD LOSS: 5 cc INDICATIONS: This is a 24-year-old female that came to the emergency department for abrupt onset lower abdominal pain that started this morning. She is afebrile without leukocytosis. CT scan showed a normal appendix with a fecalith. On physical exam patient was tender to palpation in the right lower quadrant. Patient reports that she had had several similar episodes in the past that resolved spontaneously. I discussed with the patient that the most likely diagnosis is acute appendicitis, but I can not be certain that there is an alternative cause to this abdominal pain. I recommended laparoscopic appendectomy. I discussed the procedure in detail with the patient and her family was all at bedside. All questions were answered. The patient expressed understanding and agreement with plan. DESCRIPTION OF PROCEDURE: Patient was placed on the operating table in the supine position with the left arm tucked. After being sedated and intubated by anesthesia the abdomen was prepped and draped in the usual sterile fashion. Patient is on antibiotics from the floor next dose not due for 3 hours. Local anesthetic was infiltrated into the proposed site of the supraumbilical incision. A transverse supraumbilical skin incision was made and dissection was carried down to the level of fascia. The fascia was grasped with 2 Christina clamps and elevated. The fascia was incised and the peritoneum was entered bluntly. A 12 mm balloon port was inserted into the peritoneal cavity and the abdomen was insufflated. The patient tolerated insufflation well. A laparoscopic camera was inserted into the abdomen and all 4 quadrants were inspected. no evidence of inadvertent injury apparent. There was a moderate amount of serosanguineous fluid in the pelvis. Two 5 mm ports were then placed in the suprapubic region and left lower quadrant under direct visualization. The patient was placed in Trendelenburg position with right side up. The appendix was identified and found to be enlarged without significant induration. The mesoappendix was divided using the Vuoyant vessel sealing device. The base of the appendix was transected using a white load laparoscopic stapling device. The staple line was inspected and found to be hemostatic. The appendix was placed into a laparoscopic bag. The ovaries were evaluated and found to be mildly enlarged. Serosanguineous fluid was suctioned from the pelvis. The 5 mm ports were removed under direct visualization and no ongoing bleeding evident. The appendix was removed with the 12 mm port and handed off for routine pathology. The fascia of the 12 mm port site was approximated using 0 Vicryl in a single [id number]-[id number] suture. The skin was approximated using skin kimberley. Wounds were dressed with gauze and tape. All instrument, needle, and sponge counts were correct at the end of the procedure. The patient tolerated the procedure well. The patient was aroused from sedation extubated and taken to the postanesthesia care unit in good condition. ROLY HEAD DO Aug 23, 2024 17:51 Electronically Signed by: ROLY HEAD DO08/23/24 [id number] Assessment/Plan: DISCHARGE DIAGNOSIS : Acute uncomplicated appendicitis, POA s/p Laparoscopic appendectomy on 08/24/[address] Head Drop in hemoglobin- as expected in postoperative period Acute uncomplicated appendicitis, POA s/p Laparoscopic appendectomy on 08/24/[address] Head Operative notes attached uneventful post operative period Patient able to pass gas . Laparoscopic wound dressing not soaked . Post operative pain- currently 0/10 -Recommends Tylenol 650 mg three times daily as needed No post operative nausea or vomiting reported Patient ambulating . Kimberley to be removed at outpatient clinic . Avoid Constipation- recommend adequate hydration and incorporate fruits in the diet. Drop in hemoglobin- as expected in postoperative period Hb dropped 1 unit No post operative bleeding Asymptomatic Encourage regular diet as tolerated Discharge Instructions: DATE OF ADMISSION: 08/23/2024 DATE OF DISCHARGE: 08/24/2024 DISPOSITION: HOME CONDITION: MEDICALLY STABLE CONSULTANTS: ROLY HEAD DO FOLLOW UP APPOINTMENTS: PCP 2 TO 3 DAYS. PROCEDURES: Laparoscopic appendectomy. IMAGING: REPORT ATTACHED TO SUMMARY HOME MEDICATIONS: SEE MED REC NEW MEDICATIONS: SEE MEDICATION RECONCILIATION EMERGENCY INSTRUCTIONS: THE PATIENT WAS INSTRUCTED TO PRESENT TO THE NEAREST EMERGENCY DEPARTMENTR OR CALL 911 ONCE THEIR SYMPTOMS WILL RETURN OR WORSEN Home Medications: Active Scripts Ondansetron (Ondansetron Odt) 4 Mg Tab.rapdis, 4 MG PO ONCE PRN for VOMITING for 5 Days, #5 TAB 0 Refills Prov:KAMARI CRUZ MD 08/24/24 Acetaminophen (Tylenol) 325 Mg Tablet, 650 MG PO TID PRN for PAIN for 5 Days, #15 TAB 0 Refills Prov:KAMARI CRUZ MD 08/24/24 Discontinued Scripts Cyclobenzaprine HCl (Cyclobenzaprine HCl) 5 Mg Tablet, 5 MG PO TIDP for 10 Days, #30 TAB Prov:ANDRA OLMOS MD 01/21/24 Ibuprofen (Ibuprofen 800 mg Tab) 800 Mg Tab, 800 MG PO TIDP PRN for PAIN for 10 Days, #30 TAB Prov:ANDRA OLMOS MD 01/21/24 Time spent arranging discharge: 1-30 minutes ATTESTATION BY PHYSICIAN I have seen and examined the patient. I reviewed the documentation, medical decision making, and treatment plan as noted by the resident provider above. I agree with the findings and plan of care. KAMARI GRAYSON MD, MD Aug 24, 2024 14:56
[2024-08-24] MEDS ORDERED: ONDA-243 PO (15:01)
[2024-08-24] MEDS ORDERED: ACET-2247 PO (15:01)
--- NOTE | 2024-08-24 17:35 | NUR ---
PATIENT HAS BEEN DISCHARGED. IV TAKEN OUT. EDUCATION PROVIDED TO PATIENT ON POST OP AFTERCARE WELL MEDICATIONS TO CONTINUE, AND FOLLOW UP APPOINTMENT THAT WAS MADE. RYLEE TOOK PATIENT DOWNSTAIRS.
== END 2024-08-24 17:35 | disposition home or self-care (01) ==
LOC: EDH 06:39 → INTOOBSV 09:19 → EDHIP 09:19 → 4AH 11:00
PROVIDERS: ADMIT Internal Medicine; ATTEND Internal Medicine
DX: K35.80 Unspecified acute appendicitis (principal); N39.0 Urinary tract infection, site not specified; R10.31 Right lower quadrant pain; Z79.899 Other long term (current) drug therapy
CPT/HCPCS: 36415; 74177; 80053; 81001; 81025; 82150; 83690; 83735; 85025; 87086; 88304; 96365; 96366; 96367; 96374; 96375; 96376; 99285; A4344; G0378; J0330; J0696; J1100; J1885; J2003; J2250; J2405; J2704; J2765; J3010; J3475; J3490; J7030; Q9967; A4222; A4223; A4600; A4649; A4930; A6206; C1769; J0665